=== PATIENT | male | born 1990 | race American Indian/Alaskan Native ===

== ENCOUNTER 2017-10-25 09:39 | Emergency (ER) | payer OTHER ==
[~2017-10-25] VITALS: Ht 185.4 cm; Wt 82.1 kg
[~2017-10-25 09:39] MED LIST: ACETAZOLAMIDE250 MG PO; ATROPINE SULFAT15 ML OPTH; DORZOLAMIDE-TIM10 ML OPTH; IBUPROFEN600 MG PO; IBUPROFEN800 MG PO; NORCO 5-325 TA1 EACH PO; OFLOXACIN10 ML OPTH; PENICILLIN V P250 MG PO; PENICILLIN V P500 MG PO; PREDNISOLONE ACE5 ML OPTH; TRAMADOL HCL50 MG PO
[2017-10-25] MEDS ORDERED: NORCO 10-325 T1 EACH PO (10:39)
== END 2017-10-25 11:01 | disposition home or self-care (01) ==
LOC: ED 09:39
DX: H57.11 Ocular pain, right eye (principal); Z88.5 Allergy status to narcotic agent; Z79.899 Other long term (current) drug therapy
CPT/HCPCS: 99283

== ENCOUNTER 2017-10-30 08:44 | Emergency (ER) | payer OTHER ==
[~2017-10-30] VITALS: Ht 182.9 cm; Wt 81.2 kg
[~2017-10-30 08:44] MED LIST changes: +NORCO 10-325 T1 EACH PO
[2017-10-30] MEDS ORDERED: BRIMONIDINE TART5 ML OPTH (09:05)
[2017-10-30] MEDS ORDERED: ACETAMINOPHEN325 M1 PO (09:18)
[2017-10-30] MEDS ORDERED: NAPROSYN500 MG PO (09:18)
== END 2017-10-30 09:48 | disposition home or self-care (01) ==
LOC: ED 08:44
DX: H40.9 Unspecified glaucoma (principal); Z88.5 Allergy status to narcotic agent; Z79.899 Other long term (current) drug therapy
CPT/HCPCS: 99283

== ENCOUNTER 2017-11-17 07:55 | Emergency (ER) | payer OTHER ==
[~2017-11-17] VITALS: Ht 182.9 cm; Wt 81.2 kg
[~2017-11-17 07:55] MED LIST changes: +ACETAMINOPHEN325 M1 PO; +BRIMONIDINE TART5 ML OPTH; +NAPROSYN500 MG PO
== END 2017-11-17 08:46 | disposition left against medical advice (07) ==
LOC: ED 07:55
DX: H40.20X0 Unspecified primary angle-closure glaucoma, stage unspecified (principal); Z88.5 Allergy status to narcotic agent; Z98.890 Other specified postprocedural states; Z79.899 Other long term (current) drug therapy
CPT/HCPCS: 99282

== ENCOUNTER 2018-12-02 12:27 | Emergency (ER) | payer OTHER ==
--- OUTSIDE RECORDS SUMMARY | 2018-12-02 12:30 | XMS ---
PreManage Notification: PAZ LAWSON [employer] Events 4 event(s) in the past 18 months Most recent security events: Elopement at [facility] 04/17/2018 11:53 - Patient eloped before treatment completed. Details: Patient left AMA before treatment/referral could be made. Elopement at [facility] 11/17/2017 07:56 - Patient eloped before treatment completed. Details: AMA WHEN HE DIDN'T RECEIVE NARCOTICS Elopement at [facility] 11/17/2017 07:56 - Other Details: Patient left AMA once Physician would not prescribe narcotics. CRITERIA MET - Group Notification - [facility] - Has Care Guidelines CARE PROVIDERS Irving Perdue 11/20/2017-Current PHONE: [phone] KEILA RIOS Primary Care Current PHONE: [phone] Brittni has no Care Guidelines for this patient. Care History Medical/Surgical 10/25/[address] [facility] Care Recommendation: - PATIENT CURRENTLY IS RECEIVING FOLLOW UP CARE FOR RIGHT EYE INJURY WITH DR CAMPOS. PLEASE DO NOT PRESCRIBE PAIN MEDICATIONS TO PATIENT "UP TO PROVIDER DISCRETION" - RIGHT EYE INJURY IS AN INJURY THAT OCCURRED IN [address] CAMPOS OFFICE IS WORKING ON GETTING A REFERRAL SET UP WITH AN BAG MACHINE SET UP OPERATOR PLEASE CONTACT SHANEKA CAMPOS MA IN REGARDS TO REFERRAL. - PATIENT JUST MOVED BACK FROM [facility] AND IS NEEDING TO BE ASSIGNED BACK TO [facility] (CURRENTLY ONLY OPEN CARD) W PROVIDED [facility] CUSTOMER SERVICE NUMBER FOR PATIENT TO CALL AND SET UP WITH [facility]. - PATIENT HAS A PCP APT WITH DR CAMPOS ON 10/25/17 @ 3:15. - USE EXTREME CAUTION IN GIVING NARCOTICS TO THIS PATIENT. - Avoid Discharge Narcotic prescriptions if at all possible. Please use clinical judgement. This patient has had 5 or more Emergency Department visits in the last 12 months. Patient requires education on the scope and purpose of the ED as an acute care provider not a Primary Care Provider and should not be utilized for chronic conditions. If patient returns to ED please contact Community Health WorkerKrystyna at [phone]. These are guidelines and the provider should exercise clinical judgment when providing care. Substance Use/Overdose 11/21/[address] [facility] DRUG SEEKING BEHAVIOR --THIS PATIENT HAS LEFT AMA TWICE IN TWO MONTHS WHEN BECOMES AWARE HE IS NOT RECEIVING NARCOTICS. -- E.D. VISIT COUNT (12 MO.) 1 [facility] 3 [facility] 2 [facility] TOTAL 6 NOTE: Visits indicate total known visits. ED/UCC VISIT TRACKING (12 MO.) 12/02/2018 12:27 [facility]ACQU[facility] Lee TYPE: Emergency COMPLAINT: - [facility] DIAGNOSES: - Ocular pain, right eye - eye pain [facility]2018 09[facility] DIAGNOSES: - Ocular pain, right eye - Eye pain 04/17/2018 11:[address] [facility] [place] TYPE: Emergency COMPLAINT: - R EYE PAIN/INJURY DIAGNOSES: - terminal superintendent (current) use of systemic steroids - Allergy status to narcotic agent status - Other terminal gauger (current) drug therapy - Ocular pain, right eye 12/14/2017 14:14 [facility] Davina Hernandez [place] TYPE: Emergency DIAGNOSES: [id number]. 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
== END 2018-12-02 13:13 | disposition left against medical advice (07) ==
LOC: ED 12:27
DX: H57.11 Ocular pain, right eye (principal); Z53.21 Procedure and treatment not carried out due to patient leaving prior to being seen by health care provider